=== PATIENT | male | born 1955 | race Caucasian/White ===

== ENCOUNTER 2017-12-17 14:21 | Inpatient (IN) | payer BC ==
[2017-12-17] MEDS ORDERED: SODIUM CHLORIDE 0.9% 1,000 ML IV STA ×2 (15:22)
[2017-12-17] MEDS ORDERED: ASPIRIN 325 MG TAB PO STA (15:23)
--- NOTE | 2017-12-17 15:41 | ED ---
General Adult HPI - General Chief complaint: Neuro Symptoms/Deficit Stated complaint: fall,slurred speech, Time Seen by Provider: 12/17/17 15:07 Source: patient, RN notes reviewed, old records reviewed Mode of arrival: ambulatory Limitations: no limitations - History of Present Illness Initial comments: 62-year-old male presenting complaint of slurred speech. Patient reports that he had his abscess starting on Saturday. He also states that he had some abnormal movements to his lower sided face of his lip. Patient states that seems to resolve. He states is continue to have some issues with his speech. Patient also states that he had some dyskinesias of his left hand. He states he had a hard time opening his block back. Patient reports that on Saturday he did have a slip and fall on his stairs. He states he hit his lower back. He denied any head or neck injury at that time. No loss consciousness. Patient states he has some minor lower back pain. - Related Data Home Medications Medication Instructions Recorded Confirmed Naproxen Sodium [Aleve] 220 mg PO DAILY PRN 12/17/17 12/17/17 Allergies Allergy/AdvReac Type Severity Reaction Status Date / Time No Known Allergies Allergy Unverified 12/17/17 15:23 Review of Systems ROS Statement: Those systems with pertinent positive or pertinent negative responses have been documented in the HPI. ROS Other: All systems not noted in ROS Statement are negative. Past Medical History Past Medical History: No Reported History History of Any Multi-Drug Resistant Organisms: None Reported Past Surgical History: No Surgical Hx Reported Additional Past Surgical History / Comment(s): oral Past Psychological History: Anxiety Smoking Status: Never smoker Past Alcohol Use History: None Reported Past Drug Use History: None Reported General Exam - General Exam Comments Initial Comments: Patient is a 62-year-old male. He is alert and oriented 3. He appears in no acute distress. Limitations: no limitations General appearance: alert, in no apparent distress Head exam: Present: atraumatic, normocephalic, normal inspection Eye exam: Present: normal appearance, PERRL, EOMI. Absent: scleral icterus, conjunctival injection, periorbital swelling ENT exam: Present: normal exam, mucous membranes moist Neck exam: Present: normal inspection. Absent: tenderness, meningismus, lymphadenopathy Respiratory exam: Present: normal lung sounds bilaterally. Absent: respiratory distress, wheezes, rales, rhonchi, stridor Cardiovascular Exam: Present: regular rate, normal rhythm, normal heart sounds. Absent: systolic murmur, diastolic murmur, rubs, gallop, clicks GI/Abdominal exam: Present: soft, normal bowel sounds. Absent: distended, tenderness, guarding, rebound, rigid Extremities exam: Present: normal inspection, full ROM, normal capillary refill. Absent: tenderness, pedal edema, joint swelling, calf tenderness Back exam: Present: normal inspection, other (Slight tenderness palpation over the right flank.) Neurological exam: Present: alert, oriented X3, CN II-XII intact Expanded Patient oriented to: Present: person, place, time Speech: Present: fluid speech (Patient has slight slurred speech per family.) Cranial nerves: EOM's Intact: Normal, Facial Sensation: Normal Cerebellar function: Finger to Nose: Normal Upper motor neuron: Gigi Neglect: Normal Sensory exam: Upper Extremity Light Touch: Normal, Lower Extremity Light Touch: Normal Motor strength exam: RUE: 5, LUE: 5, RLE: 5, LLE: 5 Eye Response: (4) open spontaneously Motor Response: (6) obeys commands Verbal Response: (5) oriented [place] Total: 15 Psychiatric exam: Present: normal affect Skin exam: Present: warm, dry, intact, normal color. Absent: rash Course Vital Signs 12/17/17 12/17/17 14:45 15:50 Temperature 98.8 F Pulse Rate 91 61 Respiratory 16 18 Rate Blood Pressure 165/84 140/72 O2 Sat by Pulse 98 96 Oximetry EKG Findings - EKG Comments: EKG Findings:: EKG shows normal sinus rhythm minimal voltage criteria for LVH. In for infarct age undetermined. Abnormal EKG noted. Ventricular rate of 70 bpm. Intervals 178 ms. Care instruction 96 ms. QT QTc is 396/427 ms. Medical Decision Making - Medical Decision Making 62-year-old male presented today with concern of back pain after fall, complains of slurred speech since Saturday. Patient has no focal findings on neuroexam. Did have a slightly slurred speech according to family. Difficult to appreciate on initial exam. No focal weakness the Patient reported a history of dyskinesia of his left hand earlier today. 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 Patient's EKG was negative for any acute changes. Troponin was negative. White blood cell count was 8.0. Hemoglobin 16.1. At this time Patient CT shows evidence of abnormal attenuation at the basal ganglia. There is generalized nonspecific white matter changes and most likely related to remote ischemia. Patient was given an aspirin. Also lab work does show evidence of a new onset of diabetes. Blood sugar was 250. - Lab Data Result diagrams: 12/17/17 15:05 12/17/17 15:05 Lab Results 12/17/17 12/17/17 12/17/17 Range/Units 15:05 15:05 15:05 WBC 8.0 (3.8-10.6) k/uL RBC 5.55 (4.30-5.90) m/uL Hgb 16.1 (13.0-17.5) gm/dL Hct 47.5 (39.0-53.0) % MCV 85.6 (80.0-100.0) fL MCH 29.0 (25.0-35.0) pg MCHC 33.9 (31.0-37.0) g/dL RDW 12.5 (11.5-15.5) % Plt Count 228 (150-450) k/uL Neutrophils % 66 % Lymphocytes % 26 % Monocytes % 5 % Eosinophils % 3 % Basophils % 1 % Neutrophils # 5.3 (1.3-7.7) k/uL Lymphocytes # 2.1 (1.0-4.8) k/uL Monocytes # 0.4 (0-1.0) k/uL Eosinophils # 0.2 (0-0.7) k/uL Basophils # 0.0 (0-0.2) k/uL PT (9.0-12.0) sec INR (<1.2) APTT (22.0-30.0) sec Sodium 138 (137-145) mmol/L Potassium 4.2 (3.5-5.1) mmol/L Chloride 105 (98-107) mmol/L Carbon Dioxide 23 (22-30) mmol/L Anion Gap 10 mmol/L BUN 20 (9-20) mg/dL Creatinine 0.66 (0.66-1.25) mg/dL Est GFR (CKD-EPI)AfAm >90 (>60 ml/min/1.73 sqM) Est GFR (CKD-EPI)NonAf >90 (>60 ml/min/1.73 sqM) Glucose 250 H (74-99) mg/dL POC Glucose (mg/dL) (75-99) mg/dL POC Glu Automatic Pilot Mechanic ID Calcium 9.4 (8.4-10.2) mg/dL Total Bilirubin 0.6 (0.2-1.3) mg/dL AST 22 (17-59) U/L ALT 34 (21-72) U/L Alkaline Phosphatase 78 (38-126) U/L Total Creatine Kinase 109 (55-170) U/L CK-MB (CK-2) 1.7 (0.0-2.4) ng/mL CK-MB (CK-2) Rel Index 1.6 Troponin I <0.012 (0.000-0.034) ng/mL Total Protein 7.4 (6.3-8.2) g/dL Albumin 4.1 (3.5-5.0) g/dL 12/17/17 12/17/17 Range/Units 15:05 16:03 WBC (3.8-10.6) k/uL RBC (4.30-5.90) m/uL Hgb (13.0-17.5) gm/dL Hct (39.0-53.0) % MCV (80.0-100.0) fL MCH (25.0-35.0) pg MCHC (31.0-37.0) g/dL RDW (11.5-15.5) % Plt Count (150-450) k/uL Neutrophils % % Lymphocytes % % Monocytes % % Eosinophils % % Basophils % % Neutrophils # (1.3-7.7) k/uL Lymphocytes # (1.0-4.8) k/uL Monocytes # (0-1.0) k/uL Eosinophils # (0-0.7) k/uL Basophils # (0-0.2) k/uL PT 10.4 (9.0-12.0) sec INR 1.1 (<1.2) APTT 23.1 (22.0-30.0) sec Sodium (137-145) mmol/L Potassium (3.5-5.1) mmol/L Chloride (98-107) mmol/L Carbon Dioxide (22-30) mmol/L Anion Gap mmol/L BUN (9-20) mg/dL Creatinine (0.66-1.25) mg/dL Est GFR (CKD-EPI)AfAm (>60 ml/min/1.73 sqM) Est GFR (CKD-EPI)NonAf (>60 ml/min/1.73 sqM) Glucose (74-99) mg/dL POC Glucose (mg/dL) 233 H (75-99) mg/dL POC Glu Automatic Pilot Mechanic Anitha Monterroso Calcium (8.4-10.2) mg/dL Total Bilirubin (0.2-1.3) mg/dL AST (17-59) U/L ALT (21-72) U/L Alkaline Phosphatase (38-126) U/L Total Creatine Kinase (55-170) U/L CK-MB (CK-2) (0.0-2.4) ng/mL CK-MB (CK-2) Rel Index Troponin I (0.000-0.034) ng/mL Total Protein (6.3-8.2) g/dL Albumin (3.5-5.0) g/dL - Radiology Data Radiology results: report reviewed No acute cardio pulmonary process noted. Degenerative disc disease noted. Arthropathy. Mild spinal curvature. CT was obtained for any acute hemorrhage or mass effect noted. There is degenerative and nonspecific white matter changes and abnormal attenuation in the basal ganglia. Most likely related to remote ischemia. There is concern for ischemia correlate with MRI if clinically warranted. Disposition Clinical Impression: TIA (transient ischemic attack), Diabetes mellitus, new onset, Fall, Mechanical low back pain Disposition: ADMITTED IP TO THIS HOSP Condition: Stable Is patient prescribed a controlled substance at d/c from ED?: No Referrals: Salvador Carpio DO [Primary Care Provider] - 1-2 days Time of Disposition: 17:01
[2017-12-17 15:52] LABS: Basophils % (A) 1 %; Eosinophils # (A) 0.2 k/uL (0-0.7); Eosinophils % (A) 3 %; HCT 47.5 % (39.0-53.0); HGB 16.1 gm/dL (13.0-17.5); Lymphocytes # (A) 2.1 k/uL (1.0-4.8); Lymphocytes % (A) 26 %; MCHC 33.9 g/dL (31.0-37.0); MCV 85.6 fL (80.0-100.0); Mean Platelet Volume 7.7; Monocytes # (A) 0.4 k/uL (0-1.0); Monocytes % (A) 5 %; Neutrophils # (A) 5.3 k/uL (1.3-7.7); Neutrophils % (A) 66 %; Platelet Count 228 k/uL (150-450); RBC 5.55 m/uL (4.30-5.90); RDW 12.5 % (11.5-15.5)
--- NOTE | 2017-12-17 15:52 | CT ---
EXAMINATION TYPE: CT brain wo con DATE OF EXAM: 12/17/2017 COMPARISON: None HISTORY: Left sided hand weakness CT DLP: 1108.4 mGycm Automated exposure control for dose reduction was used. FINDINGS: Mild to moderate generalized degenerative change with nonspecific white matter areas of low attenuati on. No mass effect or midline shift. No acute hemorrhage. Low attenuation within the basal ganglia bilaterally is nonspecific but most typical remote microvasc ular ischemia. Low-attenuation the ke appears artifactual. Calvarium intact. IMPRESSION: 1. No acute hemorrhage or mass effect. 2. Degenerative and nonspecific white matter changes and abnormal attenuation in the basal ganglia. F indings most likely in the basis of remote ischemia. If there is concern for acute ischemia correlate with MRI as clinically warranted.
[2017-12-17 16:01] LABS: INR 1.1 (<1.2); Partial Thromboplastin Time 23.1 sec (22.0-30.0); Prothrombin Time 10.4 sec (9.0-12.0)
[2017-12-17 16:02] LABS: ALT 34 U/L (21-72); AST 22 U/L (17-59); Albumin 4.1 g/dL (3.5-5.0); Alkaline Phosphatase 78 U/L (38-126); Anion Gap 10 mmol/L; Blood Urea Nitrogen 20 mg/dL (9-20); Calcium 9.4 mg/dL (8.4-10.2); Carbon Dioxide 23 mmol/L (22-30); Chloride 105 mmol/L (98-107); Glucose 250 mg/dL (74-99); Potassium 4.2 mmol/L (3.5-5.1); Sodium 138 mmol/L (137-145); Total Bilirubin 0.6 mg/dL (0.2-1.3); Total Protein 7.4 g/dL (6.3-8.2)
[2017-12-17 16:06] LABS: Glucose,Whole Blood 233 mg/dL (75-99)
--- NOTE | 2017-12-17 16:09 | XR ---
Lumbar spine HISTORY: Trauma and pain 3 views of the lumbar spine There is mild spinal curvature. Multilevel spondylosis is present. Loss of disc height present at the intervertebral levels shows associated vacuum phenomenon. Sclerosis present in the posterior element s. Lumbar vertebral bodies show preserved height. Bone mineralization is normal. Calcification presen t in the distribution of the aortoiliac system. IMPRESSION: Degenerative disc disease, facet arthropathy. Mild spinal curvature.
--- NOTE | 2017-12-17 16:10 | XR ---
EXAMINATION TYPE: XR chest 2V DATE OF EXAM: 12/17/2017 COMPARISON: NONE HISTORY: Trauma and pain, altered mental status TECHNIQUE: Frontal and lateral views of the chest are obtained. FINDINGS: There is no focal air space opacity, pleural effusion, or pneumothorax seen. The cardiac silhouette size is within normal limits. There are overlying cardiac leads. Patient is rotated. Incre ased AP diameter of the chest is noted. Bandlike area of increased attenuation in the left upper lobe likely represents scar or atelectasis. The osseous structures are intact. IMPRESSION: No acute cardiopulmonary process.
[2017-12-17 16:20] LABS: Creatine Kinase 109 U/L (55-170)
[2017-12-17 16:32] LABS: Creatine Kinase MB 1.7 ng/mL (0.0-2.4)
[2017-12-17 16:33] LABS: Troponin I <0.012 ng/mL (0.000-0.034)
[2017-12-17 20:50] LABS: Glucose,Whole Blood 156 mg/dL (75-99)
--- NOTE | 2017-12-17 21:26 | US ---
EXAMINATION TYPE: US carotid duplex BILAT DATE OF EXAM: 12/17/2017 COMPARISON: NONE CLINICAL HISTORY: Stenosis. Slurred speech. EXAM MEASUREMENTS: RIGHT: Peak Systolic Velocity (PSV) cm/sec ----- Right CCA: 56.6 ----- Right ICA: 84.2 ----- Right ECA: 76.9 ICA/CCA ratio: 1.5 RIGHT: End Diastole cm/sec ----- Right CCA: 14.4 ----- Right ICA: 23.1 ----- Right ECA: 5.7 LEFT: Peak Systolic Velocity (PSV) cm/sec ----- Left CCA: 69.6 ----- Left ICA: 69.6 ----- Left ECA: 72.5 ICA/CCA ratio: 1.0 LEFT: End Diastole cm/sec ----- Left CCA: 14.4 ----- Left ICA: 23.1 ----- Left ECA: 5.7 VERTEBRALS (direction of flow): Right Vertebral: Antegrade Left Vertebral: Antegrade Rhythm: Normal IMPRESSION: NO SIGNIFICANT STENOSIS SEEN.
[2017-12-17] MEDS ORDERED: ACETAMINOPHEN TAB 500 MG TAB PO PRN (21:53)
[2017-12-17] MEDS ORDERED: ALPRAZolam 0.25 MG TAB PO PRN (21:53)
--- NOTE | 2017-12-17 22:36 | HP ---
HISTORY AND PHYSICAL CHIEF COMPLAINTS: Slurring of speech and weakness. HISTORY OF PRESENT ILLNESS: This 62-year-old gentleman with a past medical history of bowel resection and extraction of wisdom teeth, being followed by Dr. Carpio in the outpatient setting, was complaining of dysarthria for the last couple of days. The patient also noted some weakness which is increasing since last yesterday. The patient came to [facility] and was admitted for further evaluation and treatment. There is no history of any fever, rigor or chills. No history of headache, loss of consciousness, seizures. PAST MEDICAL HISTORY: 1. History of bowel resection. 2. History of wisdom tooth extraction. MEDICATIONS: Naprosyn p.r.n. ALLERGIES: NONE. FAMILY HISTORY: History of diabetes mellitus and pulmonary fibrosis in the family. SOCIAL HISTORY: No history of smoking. No history of alcohol intake. REVIEW OF SYSTEMS: ENT: As mentioned earlier. CARDIOVASCULAR SYSTEM: No angina, palpitations. RESPIRATORY SYSTEM: No cough, hemoptysis. GI: No nausea, vomiting. : No dysuria or retention. NERVOUS SYSTEM: As mentioned earlier. ALLERGY/IMMUNOLOGY: No asthma, hayfever. MUSCULOSKELETAL: As mentioned earlier. HEMATOLOGY/ONCOLOGY: No history of anemia. ENDOCRINE: As mentioned earlier. CONSTITUTIONAL: As mentioned earlier. DERMATOLOGY: Negative. RHEUMATOLOGY: Negative. PSYCHIATRY: As mentioned earlier. PHYSICAL EXAMINATION: Patient is alert and oriented x3. Pulse 56, blood pressure 173/82, respiration 17, temperature 97.6, pulse ox 97% on room air. HEENT: Conjunctivae normal. Oral mucosa moist. NECK: No jugular venous distention. No carotid bruit. No lymph node enlargement. CARDIOVASCULAR SYSTEM: S1, S2 muffled. No S3. No S4. RESPIRATORY SYSTEM: Breath sounds diminished at the bases. No rhonchi. No crackles. ABDOMEN: Soft, non-tender. No mass palpable. LEGS: No edema. No swelling. NERVOUS SYSTEM: Higher functions as mentioned earlier. Moves all 4 limbs. Mild dysarthria present. Otherwise,minimal weakness on the left side present. LYMPHATICS: No lymph node palpable in neck, axillae or groin. SKIN: No ulcer, rash, bleeding. JOINTS: No active deforming arthropathy. LABS: CBC within normal limits. Glucose 250, 233. ASSESSMENT: 1. Acute transient ischemic attack involving the right hemisphere, possibly. 2. Diabetes mellitus, type 2, new onset, controlled, with hyperglycemia. 3. History of bowel resection. 4. History of wisdom tooth extraction. 5. Hypertension. 6. Lumbar degenerative joint disease. RECOMMENDATIONS AND DISCUSSION: In this 62-year-old gentleman who presented with multiple complex medical issues, we will monitor the patient closely, continue the current medications, continue symptomatic treatment. I recommend antiplatelet agents and complete neurovascular workup, neurology evaluation. Accu-Cheks before meals and at bedtime. Hemoglobin A1c. Prognosis guarded because of multiple complex medical issues. Further recommendations to follow. A carotid Doppler was also done which showed no significant stenosis. Lumbar x-ray was also done which showed DJD. The chest x-ray showed no acute cardiopulmonary process. EKG was reviewed. Prognosis guarded. Further recommendations to follow. See orders for further details. MMODL / IJN: [id number] /
[2017-12-17 23:18] LABS: Appearance,Urine Clear (Clear); Bilirubin,Urine Negative (Negative); Blood,Urine Negative (Negative); Color,Urine Yellow; Glucose,Urine (UA) 4+ (Negative); Ketones,Urine Negative (Negative); Leukocyte Esterase,Urine Negative (Negative); Nitrite,Urine Negative (Negative); PH, Urine 5.5 (5.0-8.0); Protein,Urine Trace (Negative); Specific Gravity,Urine 1.024 (1.001-1.035); Urobilinogen,Urine <2.0 mg/dL (<2.0)
[2017-12-17 23:26] LABS: Amphetamine Screen,Urine Not Detected (NotDetected); Barbiturate Screen,Urine Not Detected (NotDetected); Benzodiazepines Screen,Urine Not Detected (NotDetected); Cocaine Screen,Urine Not Detected (NotDetected); Methadone Screen, Urine Not Detected (NotDetected); Opiate Screen,Urine Not Detected (NotDetected); Oxycodone Screen, Urine Not Detected (NotDetected); Phencyclidine Screen,Urine Not Detected (NotDetected); Tricyclic Antidepressant,Urine Not Detected (NotDetected); Urn Cannabinoid Scrn Not Detected (NotDetected)
[2017-12-18 02:43] LABS: Basophils # (A) 0.1 k/uL (0-0.2); Basophils % (A) 1 %; Eosinophils # (A) 0.3 k/uL (0-0.7); Eosinophils % (A) 3 %; HCT 41.5 % (39.0-53.0); HGB 14.2 gm/dL (13.0-17.5); Lymphocytes # (A) 2.4 k/uL (1.0-4.8); Lymphocytes % (A) 30 %; MCH 29.1 pg (25.0-35.0); MCHC 34.2 g/dL (31.0-37.0); Mean Platelet Volume 7.2; Monocytes # (A) 0.4 k/uL (0-1.0); Monocytes % (A) 5 %; Neutrophils # (A) 4.7 k/uL (1.3-7.7); Neutrophils % (A) 59 %; Platelet Count 180 k/uL (150-450); RBC 4.88 m/uL (4.30-5.90); RDW 12.5 % (11.5-15.5); WBC 8.1 k/uL (3.8-10.6)
[2017-12-18 02:58] LABS: Anion Gap 6 mmol/L; Blood Urea Nitrogen 19 mg/dL (9-20); Calcium 8.6 mg/dL (8.4-10.2); Carbon Dioxide 23 mmol/L (22-30); Chloride 106 mmol/L (98-107); Cholesterol 153 mg/dL (<200); Glucose 199 mg/dL (74-99); HDL Cholesterol 49 mg/dL (40-60); LDL Cholesterol,Calculated 75 mg/dL (0-99); Potassium 3.8 mmol/L (3.5-5.1); Sodium 135 mmol/L (137-145); Triglycerides 144 mg/dL (<150)
[2017-12-18 06:02] LABS: Glucose,Whole Blood 198 mg/dL (75-99)
[2017-12-18] MEDS: PANTOPRAZOLE 40 MG TABLET PO SCH (06:22)
[2017-12-18] MEDS: INSULIN ASPART 100 UNIT/ML 1 ML 10 ML VIAL SQ SCH ×4 (06:22→22:23)
[2017-12-18] MEDS: SODIUM CHLORIDE 0.9% 1,000 ML IV SCH ×3 (06:33→22:25)
[2017-12-18] MEDS: ASPIRIN 325 MG TAB PO SCH (08:03)
[2017-12-18] MEDS: ATORVASTATIN 10 MG TAB PO SCH (08:03)
[2017-12-18] MEDS: HEPARIN SODIUM,PORCINE 5,000 UNIT/ML 1 ML VIAL SQ SCH ×2 (08:03→20:25)
[2017-12-18 09:03] LABS: Glucose,Whole Blood 171 mg/dL (75-99)
[2017-12-18 11:52] LABS: Glucose,Whole Blood 214 mg/dL (75-99)
[2017-12-18] MEDS ORDERED: LORazepam 2 MG/ML INJ IV STA (12:17)
[2017-12-18 14:23] LABS: Hemoglobin A1C 11.1 % (4.0-6.0)
--- NOTE | 2017-12-18 14:34 | PN ---
PROGRESS NOTE DATE OF SERVICE: 12/18/2017 This is a 62-year-old gentleman who was admitted with acute TIA involving the right middle hemisphere, also noted to have diabetes mellitus type 2. Neurology is following the patient. Neurovascular workup is underway. The carotid Doppler showed no significant stenosis. Hemoglobin A1c is pending. Sugars have been 198, 171, and 214. No chest pain. No palpitations. No fever. PHYSICAL EXAM: Patient is alert, oriented x3, pulse is 65, blood pressure 140/70, respiration 18, temperature 98.1, pulse ox 99% on room air. HEENT: Conjunctivae normal. NECK: No JVD. CARDIOVASCULAR: S1, S2, muffled. RESPIRATORY: Breath sounds diminished at the bases, no rhonchi, no crackles. ABDOMEN: Soft, nontender. NERVOUS SYSTEM: Minimal dysarthria. Minimal weakness on the left side. No gait dysfunction. LYMPHATICS: No lymph node enlargement in the neck or axillae. LABS: Accu-Cheks noted, sodium 135. ASSESSMENT: 1. Acute transient ischemic attack involving the right hemisphere, possibly. 2. Diabetes mellitus type 2 new onset, uncontrolled with hyperglycemia. 3. History of bowel resection. 4. History of recent tooth extraction. 5. Hypertension. 6. Lumbar degenerative joint disease. RECOMMENDATION: Recommend to continue with the current medications, monitor symptomatic treatment. At this time will initiate Glucophage and continue to monitor. See orders for further details. Further recommendations to follow. I would also recommend MRI, Neurology evaluation. MMODL / IJN: [id number] /
[2017-12-18 15:01] VITALS: BMI 33.9
[2017-12-18] MEDS: metFORMIN 500 MG TAB PO SCH ×2 (15:42→17:13)
[2017-12-18 16:59] LABS: Glucose,Whole Blood 172 mg/dL (75-99)
[2017-12-18 20:58] LABS: Glucose,Whole Blood 171 mg/dL (75-99)
--- NOTE | 2017-12-18 23:45 | P.CNNES ---
History of Present Illness Consult date: 12/18/17 Reason for Consult: Patient admitted with slurred speech and left hand weakness. History of Present Illness: This patient is a 62-year-old right hand white male who apparently was in his usual state of health until yesterday. Patient apparently was at home as usual and was working in his garage when he noticed difficulty with the use of his left arm. Apparently he was experiencing fine motor skill deficits in that he could not use his left hand as he could to his right. He came into the house and his noted that he was having difficulty with his speech. As time went on his speech became more and more slurred. 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 His had noted the changes and she was quite concerned. Apparently he has not been seen by his primary care physician Dr. Carpio in over 2 years. He states he never goes to the physicians unless he is very sick. The patient was brought into the emergency room at [facility] yesterday for further evaluation. He was seen in the ER by Dr. Castillo. He was sent for a computed tomography scan of the brain given his symptoms of weakness and slurred speech yesterday. CAT scan of the brain yesterday revealed no acute hemorrhage or mass effect. Degenerative and nonspecific white matter changes and abnormal attenuation was noted in the basal ganglia. These findings suggesting remote ischemia. No evidence of hemorrhage or mass effect was noted. Patient also underwent carotid Doppler ultrasound yesterday which revealed no significant stenosis. Patient states he does not take aspirin on a regular basis at home. As noted he has not been seen by his primary care physician in over 2 years. In the emergency room his blood sugar was noted to be very elevated at 250. He was diagnosed with new onset diabetes mellitus and was started on diabetic medications. Patient denies any previous history of TIA or stroke. He retired from [employer] in 2006 but has remained very active at home according to his . The patient was admitted to the hospital and neurology is now been consulted for further evaluation and recommendations. Review of Systems Constitutional: Denies chills, Denies fever Eyes: denies blurred vision, denies pain Ears, nose, mouth and throat: Denies as per HPI ( ultimately still), Denies headache, Denies sore throat Cardiovascular: Denies chest pain, Denies shortness of breath Respiratory: Denies cough Gastrointestinal: Denies abdominal pain, Denies diarrhea, Denies nausea, Denies vomiting Musculoskeletal: Denies myalgias Integumentary: Denies pruritus, Denies rash Neurological: Reports balance difficulties, Reports change in speech, Reports confusion, Reports double vision, Reports lack of coordination, Reports motor disturbance, Reports paresthesias, Reports tingling, Denies numbness, Denies weakness Psychiatric: Denies anxiety, Denies depression Endocrine: Denies fatigue, Denies weight change Past Medical History Past Medical History: No Reported History Additional Past Medical History / Comment(s): rt side dominant History of Any Multi-Drug Resistant Organisms: None Reported Past Surgical History: Bowel Resection Additional Past Surgical History / Comment(s): wisdome teeth extracted andgumm sx Past Anesthesia/Blood Transfusion Reactions: No Reported Reaction Smoking Status: Never smoker - Past Family History Father Family Medical History: Diabetes Mellitus Additional Family Medical History / Comment(s): , pulmonary fibrosis Mother Family Medical History: Diabetes Mellitus Medications and Allergies Home Medications Medication Instructions Recorded Confirmed Type Naproxen Sodium [Aleve] 220 mg PO DAILY PRN 12/17/17 12/17/17 History Allergies Allergy/AdvReac Type Severity Reaction Status Date / Time No Known Allergies Allergy Unverified 12/17/17 15:23 Physical Examination - Vital Signs Vital Signs: Vital Signs Temp Pulse Pulse Resp BP BP Pulse Ox 12/18/17 15:20 98.3 F 61 18 140/78 95 12/18/17 12:05 98.1 F 65 18 144/73 99 12/18/17 07:50 97.2 F L 58 L 18 140/66 96 12/18/17 04:00 62 16 132/86 96 12/18/17 00:00 68 18 116/65 96 12/17/17 22:12 98.0 F 58 L 18 162/82 98 12/17/17 20:52 56 L 17 173/82 97 Intake and Output 12/18/17 12/18/17 12/18/17 06:59 14:59 22:59 Intake Total 800 222 Output Total 1040 800 Balance -240 -578 Intake: Intake, IV Titration 800 Amount Sodium Chloride 0.9% 1, 800 000 ml @ 100 mls/hr IV . Q10H [facility] Rx#:[id number] Oral 222 Output: Urine 1040 800 Other: # Voids 4 Weight 107.2 kg 107.2 kg - Constitutional General appearance: average body habitus, cooperative - EENT EENT: PERRL, mucous membranes moist - Respiratory Respiratory: lungs clear, normal breath sounds - Cardiovascular Cardiovascular: regular rate, normal S1, normal S2 Extremities: no peripheral edema bilaterally - Gastrointestinal Gastrointestinal: normoactive bowel sounds - Integumentary Integumentary: normal - Neurologic Cranial nerve examination: PERRL, EOMI, VFF, V1/V2/V3 grossly intact, face symmetric, tongue midline, intact gag reflex, intact corneal reflex, normal palatal elevation Speech examination: intact Sensorimotor examination: intact Motor examination - right side: 4/5: biceps, triceps, wrist flexion, wrist extension, final assembly and packing supervisor, hip flexors, knee extensors, dorsiflexion, toe extension (EHL) , plantarflexion Motor examination - left side: 4/5: biceps, triceps, wrist flexion, wrist extension, final assembly and packing supervisor, hip flexors, knee extensors, dorsiflexion, toe extension (EHL) , plantarflexion Detailed sensory examination: intact Reflex and gait examination: intact Reflexes: 1+: ankle, bicep, knee, tricep Cerebellar examination: dysmetria, dysdiadochokinesia - Musculoskeletal Musculoskeletal: no pain - Psychiatric Psychiatric: mood/affect appropriate, cooperative Results - Laboratory Findings CBC and BMP: 12/18/17 02:28 12/18/17 02:28 Abnormal Lab Findings: Abnormal Labs 12/17/17 12/17/17 12/17/17 15:05 15:05 16:03 Sodium Creatinine Glucose 250 H POC Glucose (mg/dL) 233 H Hemoglobin A1c 11.1 H Urine Protein Urine Glucose (UA) 12/17/17 12/17/17 12/18/17 20:49 23:00 02:28 Sodium 135 L Creatinine 0.60 L Glucose 199 H POC Glucose (mg/dL) 156 H Hemoglobin A1c Urine Protein Trace H Urine Glucose (UA) 4+ H 12/18/17 12/18/17 12/18/17 05:59 08:43 11:49 Sodium Creatinine Glucose POC Glucose (mg/dL) 198 H 171 H 214 H Hemoglobin A1c Urine Protein Urine Glucose (UA) 12/18/17 16:53 Sodium Creatinine Glucose POC Glucose (mg/dL) 172 H Hemoglobin A1c Urine Protein Urine Glucose (UA) Assessment and Plan (1) Acute ischemic vertebrobasilar artery cerebellar stroke Current Visit: Yes Status: Acute Code(s): I63.29 - CEREBRAL INFRC DUE TO UNSP OCCLS OR STENOSIS OF PRECERB ART SNOMED Code(s): 778731446 (2) Chronic low back pain Current Visit: Yes Status: Acute Code(s): M54.5 - LOW BACK PAIN; G89.29 - OTHER CHRONIC PAIN SNOMED Code(s): 914918129 (3) Diabetes mellitus, new onset Current Visit: Yes Status: Acute Code(s): E11.9 - TYPE 2 DIABETES MELLITUS WITHOUT COMPLICATIONS SNOMED Code(s): 910920833 (4) Fall Current Visit: Yes Status: Acute Code(s): W19.XXXA - UNSPECIFIED FALL, INITIAL ENCOUNTER SNOMED Code(s): 2103238 Plan: This patient is a 62-year-old male who was admitted through the emergency room yesterday with symptoms of slurred speech and weakness in his left arm. Symptoms came on suddenly and he was transported to the emergency room yesterday and was seen in the ER by Dr. Castillo. He was sent for a computed tomography scan of the brain which failed to reveal any evidence of acute stroke. He was subtotally admitted to Hospital. His neurological examination today reveals him to have significant left-sided hemiparesis as well as left- sided dysmetria on finger-nose testing. He has dysmetria in the lower extremities as well with [id number] testing on his left side. These findings are all suggesting an acute cerebellar stroke. We have recommended the patient undergo an MRI of the brain. Carotid Doppler ultrasound failed to reveal any significant carotid artery stenosis. He will require a complete stroke evaluation. We recommend he be placed on aspirin daily for secondary stroke prevention. Would recommend physical therapy consultation for the patient as well. We have discussed his findings in detail with the patient and his who is at bedside. All of their questions were answered. They are aware of his current neurological findings and status. His overall prognosis at this time remains very guarded. We will continue close neurological follow-up for this patient during this admission. Time with Patient: Greater than 30
[2017-12-19 02:06] LABS: Cholesterol 150 mg/dL (<200); HDL Cholesterol 46 mg/dL (40-60); LDL Cholesterol,Calculated 76 mg/dL (0-99); Triglycerides 139 mg/dL (<150)
[2017-12-19] MEDS: metFORMIN 500 MG TAB PO SCH ×2 (06:10→18:30)
[2017-12-19] MEDS: PANTOPRAZOLE 40 MG TABLET PO SCH (06:11)
[2017-12-19 06:13] LABS: Glucose,Whole Blood 148 mg/dL (75-99)
[2017-12-19] MEDS: INSULIN ASPART 100 UNIT/ML 1 ML 10 ML VIAL SQ SCH ×4 (07:03→21:34)
[2017-12-19] MEDS: SODIUM CHLORIDE 0.9% 1,000 ML IV SCH ×2 (07:42→12:54)
[2017-12-19] MEDS: HEPARIN SODIUM,PORCINE 5,000 UNIT/ML 1 ML VIAL SQ SCH ×2 (08:41→21:34)
[2017-12-19] MEDS: ATORVASTATIN 10 MG TAB PO SCH (08:41)
[2017-12-19] MEDS: ASPIRIN 325 MG TAB PO SCH (08:41)
[2017-12-19] MEDS ORDERED: LORazepam 2 MG/ML INJ IV STA (09:46)
--- NOTE | 2017-12-19 11:27 | MR ---
MR brain without contrast HISTORY: Left-sided weakness, TIA Multiplanar multisequence imaging through the brain There is restricted diffusion within the region of the putamen on the right. There is associated hype rintensity and inversion recovery T2-weighted sequences, hypointensity on T1-weighted sequences. Ther e is no mass effect. Scattered and confluent hyperintensities on T2 and inversion recovery sequences are noted within the periventricular, subcortical, deep white matter. Cortical atrophy is present. No evident hemorrhage or hydrocephalus. The orbits show symmetric appearance. There are normal vascular flow voids. Cerebellopontine angles, corpus callosum, pituitary, cervical medullary junction are wit hin normal limits. IMPRESSION: Subacute infarct region of the right putamen. There is also evidence of chronic small ves guzman ischemia, age related atrophy.
[2017-12-19 12:00] LABS: Glucose,Whole Blood 189 mg/dL (75-99)
--- NOTE | 2017-12-19 14:13 | P.CRDCN ---
History of Present Illness History of present illness: This is a pleasant 62-year-old male with no significant past medical history. He presented to the hospital with symptoms of slurred speech, left hand numbness, dizziness and increased fatigue. MRI of the brain performed indicates subacute infarct of right putamen, evidence of chronic small vessel ischemia and age related atrophy. We have been asked to do a CARROLL. Echocardiogram obtained is pending and will be reviewed. Bilateral carotid Dopplers obtained and reveal no significant stenosis. EKG reveals sinus mechanism with T-wave inversions inferiorly. Telemetry tracings indicate sinus mechanism with no acute arrhythmia noted. He denies history of coronary artery disease, hypertension, dyslipidemia or diabetes mellitus. He states he has never been told he has atrial fibrillation and is never seen a crown presser other than in the hospital for a stress test. He denies symptoms of chest pain , palpitations, nausea, vomiting, diaphoresis, shortness of breath or dizziness. He states over the previous year so one or 2 times he has felt a sensation of fluttering in his chest that lasted approximately one to 2 minutes and ultimately subsided on its own. Laboratory data reviewed, hemoglobin 14.2, platelets 180, sodium 135, potassium 3.8, creatinine 0.6, cardiac enzymes negative 3, LDL 76, HDL 46. Prior to arrival he took no daily medications. Review of Systems At the time of my exam: CONSTITUTIONAL: Denies fever. Denies chills. Complains of slurred speech. EYES: Denies blurred vision. Denies vision changes. Denies eye pain. EARS, NOSE, MOUTH & THROAT: Denies headache. Denies sore throat. Denies ear pain. CARDIOVASCULAR: Denies chest pain. Denies shortness of breath. Denies orthopnea. Denies PND. Denies palpitations. RESPIRATORY: Denies cough. GASTROINTESTINAL: Denies abdominal pain. Denies diarrhea. Denies constipation. Denies nausea. Denies vomiting. MUSCULOSKELETAL: Denies myalgias. INTEGUMENTARY: Denies pruitis. Denies rash. NEUROLOGIC: Complains of numbness to left hand. Denies tingling. Denies weakness. PSYCHIATRIC: Denies anxiety. Denies depression. ENDOCRINE: Denies fatigue. Denies weight change. Denies polydipsia. Denies polyurina. GENITOURINARY: Denies burning, hematuria or urgency with micturation. HEMATOLOGIC: Denies history of anemia. Denies bleeding. Past Medical History Past Medical History: No Reported History Additional Past Medical History / Comment(s): rt side dominant History of Any Multi-Drug Resistant Organisms: None Reported Past Surgical History: Bowel Resection Additional Past Surgical History / Comment(s): wisdome teeth extracted andgumm sx Past Anesthesia/Blood Transfusion Reactions: No Reported Reaction Smoking Status: Never smoker - Past Family History Father Family Medical History: Diabetes Mellitus Additional Family Medical History / Comment(s): , pulmonary fibrosis Mother Family Medical History: Diabetes Mellitus Medications and Allergies Home Medications Medication Instructions Recorded Confirmed Type Naproxen Sodium [Aleve] 220 mg PO DAILY PRN 12/17/17 12/17/17 History Allergies Allergy/AdvReac Type Severity Reaction Status Date / Time No Known Allergies Allergy Unverified 12/17/17 15:23 Physical Exam Vitals: Vital Signs Temp Pulse Resp BP Pulse Ox 12/19/17 08:00 96.9 F L 59 L 16 149/65 95 12/19/17 04:00 63 16 150/81 98 12/18/17 23:30 64 16 152/69 96 12/18/17 20:00 97.7 F 60 16 153/77 99 12/18/17 15:20 98.3 F 61 18 140/78 95 Intake and Output 12/18/17 12/19/17 12/19/17 22:59 06:59 14:59 Intake Total 480 Balance 480 Intake: Intake, IV Titration 480 Amount Sodium Chloride 0.9% 1, 480 000 ml @ 60 mls/hr IV . [id number] [facility] Rx#:[id number] Other: # Voids 1 2 Weight 105 kg Blood pressure 149/65 heart rate 59 afebrile maintaining oxygen saturation on room air GENERAL: This is a 62-year-old male in no apparent distress at the time of my examination. Mild slightly slurred speech. HEENT: Head is atraumatic, normocephalic. Pupils are equal, round. Sclerae anicteric. Conjunctivae are clear. Mucous membranes of the mouth are moist. Neck is supple. There is no jugular venous distention. No carotid bruit is heard. LUNGS: Clear to auscultation no wheezes, rales or rhonchi. No chest wall tenderness is noted on palpation or with deep breathing. HEART: Regular rate and rhythm without murmurs, rubs or gallops. S1 and S2 heard. ABDOMEN: Soft, nontender. Bowel sounds are heard. No organomegaly noted. EXTREMITIES: No evidence of peripheral edema and no calf tenderness noted. VASCULAR: Radial and dorsalis pedis pulses palpated, no evidence of clubbing. NEUROLOGIC: Patient is awake, alert and oriented x3. Results 12/18/17 02:28 12/18/17 02:28 Lipids 12/18/17 Range/Units 02:28 Triglycerides 139 (<150) mg/dL Cholesterol 150 (<200) mg/dL HDL Cholesterol 46 (40-60) mg/dL Current Medications Generic Name Dose Route Start Last Admin Trade Name Freq PRN Reason Stop Dose Admin Acetaminophen 500 mg 12/17/17 21:53 Tylenol Tab PO Q6HR PRN Fever and/ or Pain Alprazolam 0.25 mg 12/17/17 21:53 Xanax PO TID PRN Anxiety Aspirin 325 mg 12/18/17 09:00 12/19/17 08:41 Aspirin PO 325 mg DAILY COLTEN Administration Atorvastatin Calcium 10 mg 12/18/17 09:00 12/19/17 08:41 Lipitor PO 10 mg DAILY COLTEN Administration Heparin Sodium (Porcine) 5,000 unit 12/18/17 09:00 12/19/17 08:41 Heparin SQ 5,000 unit Q12HR COLTEN Administration Sodium Chloride 1,000 mls @ 60 mls/hr 12/17/17 17:15 12/19/17 12:54 Saline 0.9% IV 60 mls/hr .[id number] COLTEN Administration Insulin Aspart 0 unit 12/18/17 07:30 12/19/17 12:53 Novolog SQ 3 unit ACHS COLTEN Administration Protocol Metformin HCl 500 mg 12/18/17 13:53 12/19/17 06:10 Glucophage PO 500 mg BID-W/MEALS COLTEN Administration Pantoprazole Sodium 40 mg 12/18/17 07:30 12/19/17 06:11 Protonix PO 40 mg [id number] COLTEN Administration Intake and Output 12/18/17 12/19/17 12/19/17 22:59 06:59 14:59 Intake Total 480 Balance 480 Intake: Intake, IV Titration 480 Amount Sodium Chloride 0.9% 1, 480 000 ml @ 60 mls/hr IV . [id number] [facility] Rx#:[id number] Other: # Voids 1 2 Weight 105 kg 12/18/17 02:28 12/18/17 02:28 Assessment and Plan Assessment: ASSESSMENT Acute ischemic vertebrobasilar artery cerebellar stroke Diabetes mellitus PLAN CARROLL has been requested and will be performed tomorrow. Procedure has been explained in detail to the patient and his was at the bedside. Questions have been answered appropriately and they're agreeable to move forward with the above stated procedure. This has been reported orders have been placed. He will be nothing by mouth after midnight tonight. Nurse Practitioner note has been reviewed, I agree with a documented findings and plan of care. Patient was seen and examined.
--- NOTE | 2017-12-19 16:59 | PN ---
PROGRESS NOTE DATE OF SERVICE: 12/19/2017 This 62-year-old gentleman who was admitted with acute stroke in the right hemisphere had MRI of the brain which showed evidence of subacute infarct in the region of the right putamen. There is also evidence of chronic small-vessel ischemia. No chest pain. No palpitations. No fever. Neurology is following the patient closely. On exam, alert and oriented x3. The pulse is 59, blood pressure 114/64, respiration 16, temperature 96.9, pulse ox 94% on room air. HEENT: Conjunctivae normal. Oral mucosa moist. NECK: No jugular venous distention. No carotid bruit. No lymph node enlargement. CARDIOVASCULAR SYSTEM: S1, S2 muffled. RESPIRATORY SYSTEM: Breath sounds diminished at the bases. No rhonchi. No crackles. ABDOMEN: Soft, non-tender. LEGS: No edema. No swelling. NERVOUS SYSTEM: Minimal weakness in the left upper limb. Sodium 135, glucose 189. Lipid panel is normal. Drug screen is negative, ASSESSMENT: 1. Acute stroke of the right putamen causing weakness of the left side of the body. 2. Diabetes mellitus, type 2, new onset, uncontrolled with hyperglycemia. 3. History of bowel resection. 4. History of recent tooth extraction. 5. Hypertension. 6. History of lumbar degenerative joint disease. RECOMMENDATIONS AND DISCUSSION: I recommend to continue current medication, continue with the monitoring, symptomatic treatment. Otherwise, at this time I would monitor the patient closely. The blood sugar is slightly elevated. Hemoglobin A1c is 11. We will continue to monitor. Guarded prognosis. Further recommendations to follow. Will increase ambulation. PT/OT evaluation and possible CARROLL by Cardiology to rule out intracardiac sources or right-to- left shunts. Prognosis guarded. Further recommendations to follow. MMODL / IJN: [id number] /
[2017-12-19 17:20] LABS: Glucose,Whole Blood 159 mg/dL (75-99)
[2017-12-19 20:06] LABS: Glucose,Whole Blood 141 mg/dL (75-99)
[2017-12-20 07:05] LABS: Glucose,Whole Blood 152 mg/dL (75-99)
[2017-12-20] MEDS: PANTOPRAZOLE 40 MG TABLET PO SCH (07:43)
[2017-12-20] MEDS: metFORMIN 500 MG TAB PO SCH ×2 (07:43→18:06)
[2017-12-20] MEDS: INSULIN ASPART 100 UNIT/ML 1 ML 10 ML VIAL SQ SCH ×3 (07:45→18:06)
[2017-12-20] MEDS: ATORVASTATIN 10 MG TAB PO SCH ×2 (09:07→09:11)
[2017-12-20] MEDS: ASPIRIN 325 MG TAB PO SCH ×2 (09:07→09:10)
[2017-12-20] MEDS: HEPARIN SODIUM,PORCINE 5,000 UNIT/ML 1 ML VIAL SQ SCH (09:07)
[2017-12-20 11:10] LABS: Glucose,Whole Blood 141 mg/dL (75-99)
[2017-12-20] MEDS ORDERED: fentaNYL (PF) 50 MCG/ML 2 ML AMP ONE (12:38)
[2017-12-20] MEDS ORDERED: MIDAZOLAM 2 MG/2 ML VIAL ONE (12:38)
[2017-12-20] MEDS: BENZOCAINE SPRAY 1 CAN MUCOUS MEM ONE ×2 (12:54→12:56)
[2017-12-20] MEDS ORDERED: IV FLUID CONTINUATION 1,000 ML IV ONE (12:56)
[2017-12-20] MEDS ORDERED: fentaNYL (PF) 50 MCG/ML 2 ML AMP IVP ONE (12:57)
[2017-12-20] MEDS: MIDAZOLAM 2 MG/2 ML VIAL IVP ONE ×2 (12:57→12:59)
[2017-12-20] MEDS ORDERED: MIDAZOLAM 2 MG/2 ML VIAL IVP ONE (13:02)
--- NOTE | 2017-12-20 13:27 | P.TEE ---
Indications for Procedure(s): TIA Date of Procedure: 12/20/17 Preoperative Diagnosis: TIA Postoperative Diagnosis: No Cardec source of emboli identified Procedure(s) Performed: CARROLL Description of Procedure(s): INDICATION: To identify any Cardec source of emboli. Patient had TIA CONSENT: Verbal consent was obtained from the patient PROCEDURE: Patient was brought to the lab in a fasting state. Patient was prepped and draped in the usual fashion. The throat was sprayed with Cetacaine. A lubricated Omni probe was introduced in the oropharynx and was advanced into the esophagus. Multiple views were obtained. Patient tolerated the procedure well FINDINGS:. The aortic valve is tricuspid and function normally. Aortic root appeared to be normal. The mitral valve showed mild regurgitation. Tricuspid valve appeared to be normal. Left ankle size and function appear to be normal. Interatrial septum is intact without any spontaneous shunt. Contrast saline bubble injection was performed. No crossing of the bubbles noted. Left atrial appendage is free of any clot IMPRESSION: #1. No PFO #2. No evidence of clot in left atrial appendage. #3. No plaque in the aorta #4. Normal valvular function. Trace to mild mitral regurgitation. #5. Normal LV function PLAN:. Maximum medical therapy. Look for other causes of TIA.
[2017-12-20] MEDS ORDERED: SODIUM CHLORIDE 0.9% 1,000 ML IV SCH (13:30)
[2017-12-20 14:07] VITALS: RESP 16; TEMP 98.5
[2017-12-20 16:40] VITALS: BP 156/75; PULSE 71
[2017-12-20 17:12] LABS: Glucose,Whole Blood 165 mg/dL (75-99)
--- NOTE | 2017-12-20 19:51 | P.PN ---
Subjective Progress Note Date: 12/20/17 This patient is a 62-year-old male being evaluated for possible acute stroke findings. Patient was able to complete MRI of the brain today which did reveal evidence of a subacute stroke involving the right putamen. This area of infarction is occasionally associated with uncontrolled hypertension. Patient seems to be doing fairly well despite this acute finding on his MRI of the brain. We have recommended the patient to monitor his blood pressure very closely even upon discharge home. He is currently not taking any antihypertensive medications. He was recently found to have elevated blood sugars and is been diagnosed with new onset diabetes mellitus. He has been placed on Glucophage for further treatment. He should follow-up with his primary care physician Dr. Carpio upon discharge from the hospital. We reviewed the results of his MRI of the brain today which does reveal evidence of a right ischemic infarction involving the putamen. As noted this is not uncommonly seen with uncontrolled hypertension. The patient did undergo a CARROLL procedure today by cardiology. This CARROLL came back negative with no evidence of PFO or left atrial appendage clot. We have recommended patient to be placed on aspirin daily for secondary stroke prevention. He is to have a 30 day event monitor placed by cardiology and should follow-up with them soon after discharge. The patient otherwise seems to be doing good in terms of recovery from his recent stroke. He may follow-up in the outpatient neurology clinic in 3-4 weeks and should keep a blood pressure log. Patient is been cleared for discharge home today. We've recommended that the discharge nurse discussed with Dr. Cortés whether he may require antihypertensive medication prior to discharge. Objective - Vital Signs Vital signs: Vital Signs Temp 98.5 F 12/20/17 13:18 Pulse 71 12/20/17 16:10 Resp 16 12/20/17 16:10 BP 156/75 12/20/17 16:10 Pulse Ox 99 12/20/17 16:10 Intake & Output 12/20/17 12/20/17 12/21/17 06:59 18:59 06:59 Intake Total 1880 100 Balance 1880 100 Weight 105 kg Intake: IV 400 100 Sodium Chloride 0.9% 1, 400 000 ml @ 60 mls/hr IV . [id number] [facility] Rx#:[id number] Intake, IV Titration 480 Amount Sodium Chloride 0.9% 1, 480 000 ml @ 60 mls/hr IV . [id number] [facility] Rx#:[id number] Oral 1000 Other: # Voids 1 - Exam Physical examination: PHYSICAL EXAMINATION: Patient is resting comfortably in bed. VITAL SIGNS: Blood pressure is [156/75]. Heart rate is [71]. Respiration is [16] . Temperature is [98.5]. HEENT: Head is atraumatic, neck is supple, there were no carotid bruits. CHEST: Lungs are clear to auscultation and percussion. CARDIAC: S1, S2 normal rate and rhythm. There is no murmur. ABDOMEN: Soft and nontender. Bowel sounds are present. EXTREMITIES: There is no pedal edema. Peripheral pulses are present. Neurological Examinatiion: Patient has a nonfocal neurological examination today. - Labs CBC & Chem 7: 12/18/17 02:28 12/18/17 02:28 Labs: Abnormal Lab Results - Last 24 Hours (Table) 12/19/17 12/20/17 12/20/17 Range/Units 20:04 07:03 11:08 POC Glucose (mg/dL) 141 H 152 H 141 H (75-99) mg/dL 12/20/17 Range/Units 17:09 POC Glucose (mg/dL) 165 H (75-99) mg/dL Assessment and Plan Assessment: And incoordination (1) Acute ischemic vertebrobasilar artery cerebellar stroke Current Visit: Yes Status: Acute Code(s): I63.29 - CEREBRAL INFRC DUE TO UNSP OCCLS OR STENOSIS OF PRECERB ART SNOMED Code(s): 946736915 (2) Chronic low back pain Current Visit: Yes Status: Acute Code(s): M54.5 - LOW BACK PAIN; G89.29 - OTHER CHRONIC PAIN SNOMED Code(s): 302032441 (3) Diabetes mellitus, new onset Current Visit: Yes Status: Acute Code(s): E11.9 - TYPE 2 DIABETES MELLITUS WITHOUT COMPLICATIONS SNOMED Code(s): 038670357 (4) Fall Current Visit: Yes Status: Acute Code(s): W19.XXXA - UNSPECIFIED FALL, INITIAL ENCOUNTER SNOMED Code(s): 5453777 Plan: This patient is a 62-year-old right-handed white male who was seen in neurology consultation initially for evaluation of left-sided arm weakness and difficulty with fine motor control of the left hand. Patient underwent full evaluation including MRI of the brain which did reveal evidence of an acute right putamen ischemic infarction. This was an isolated lesion. He subsequently underwent CARROLL procedure today which came back negative with no evidence of PFO or clot in the left atrial appendage. The patient's blood pressure is running slightly elevated. We have recommended that he keep a blood pressure log. This should be reviewed at his next follow-up visit in the neurology clinic in 3-4 weeks. Patient should be maintained on aspirin daily for secondary stroke prevention. He is newly diagnosed with diabetes mellitus and should follow-up with his primary care physician for tight control of his blood sugars. We reviewed all of his test results with the patient and his today at length. They have been updated on his MRI results yesterday. We will continue close neurological follow-up for the patient during this admission. He should schedule a follow- up appointment in the neurology clinic in 3-4 weeks. His overall prognosis at this time remains guarded.
--- NOTE | 2017-12-20 19:58 | P.PN ---
Subjective Progress Note Date: 12/19/17 This patient is a 62-year-old male being evaluated for possible acute stroke findings. Patient was able to complete MRI of the brain today which did reveal evidence of a subacute stroke involving the right putamen. This area of infarction is occasionally associated with uncontrolled hypertension. This patient's blood pressure readings reveal some elevated findings occasionally throughout the day. We have recommended that he should keep a blood pressure log for the next several months for close monitoring. He is scheduled to undergo CARROLL procedure tomorrow for further evaluation of this recent stroke. We have discussed all of these findings in detail today with the patient and his was at bedside. All of their questions were answered. The patient has been has been diagnosed with new onset diabetes mellitus. His hemoglobin A1c today was 11.0. He is been started on Glucophage. He should follow-up with Dr. Carpio or field technical specialist for further management of his new diabetes mellitus. His stroke risk factors include hypertension and diabetes mellitus. His cholesterol apparently is relatively in a normal range. We have recommended he have repeat laboratory testing done in 3 months. We will await further recommendations from cardiology pending his CARROLL procedure which is to be done tomorrow. Patient seems to be doing fairly well despite this acute finding on his MRI of the brain. We have recommended a complete stroke evaluation for the patient. We will continue close neurological follow-up with the patient during this admission. His overall prognosis remains guarded. Objective - Vital Signs Vital signs: Vital Signs Temp 97.5 F L 12/19/17 21:00 Pulse 62 12/19/17 21:00 Resp 16 12/19/17 21:00 BP 131/67 12/19/17 21:00 Pulse Ox 93 L 12/19/17 21:00 Intake & Output 12/19/17 12/19/17 12/20/17 06:59 18:59 06:59 Intake Total 480 120 Balance 480 120 Weight 105 kg Intake: IV 120 Sodium Chloride 0.9% 1, 120 000 ml @ 60 mls/hr IV . [id number] [facility] Rx#:[id number] Intake, IV Titration 480 Amount Sodium Chloride 0.9% 1, 480 000 ml @ 60 mls/hr IV . [id number] [facility] Rx#:[id number] Other: # Voids 2 - Exam Physical examination: PHYSICAL EXAMINATION: Patient is resting comfortably in bed. VITAL SIGNS: Blood pressure is [149/65]. Heart rate is [59]. Respiration is [16] . Temperature is [96.9]. HEENT: Head is atraumatic, neck is supple, there were no carotid bruits. CHEST: Lungs are clear to auscultation and percussion. CARDIAC: S1, S2 normal rate and rhythm. There is no murmur. ABDOMEN: Soft and nontender. Bowel sounds are present. EXTREMITIES: There is no pedal edema. Peripheral pulses are present. Neurological examination: Patient's neurological examination is unchanged from yesterday. - Labs CBC & Chem 7: 12/18/17 02:28 12/18/17 02:28 Labs: Abnormal Lab Results - Last 24 Hours (Table) 12/19/17 12/19/17 12/19/17 Range/Units 06:11 11:55 17:18 POC Glucose (mg/dL) 148 H 189 H 159 H (75-99) mg/dL 12/19/17 Range/Units 20:04 POC Glucose (mg/dL) 141 H (75-99) mg/dL Assessment and Plan (1) Acute ischemic vertebrobasilar artery cerebellar stroke Current Visit: Yes Status: Acute Code(s): I63.29 - CEREBRAL INFRC DUE TO UNSP OCCLS OR STENOSIS OF PRECERB ART SNOMED Code(s): 716053748 (2) Chronic low back pain Current Visit: Yes Status: Acute Code(s): M54.5 - LOW BACK PAIN; G89.29 - OTHER CHRONIC PAIN SNOMED Code(s): 660564445 (3) Diabetes mellitus, new onset Current Visit: Yes Status: Acute Code(s): E11.9 - TYPE 2 DIABETES MELLITUS WITHOUT COMPLICATIONS SNOMED Code(s): 029765276 (4) Fall Current Visit: Yes Status: Acute Code(s): W19.XXXA - UNSPECIFIED FALL, INITIAL ENCOUNTER SNOMED Code(s): 5422247 Plan: This patient is a 62-year-old male who was admitted to Hospital with symptoms of left-sided weakness. We have recommended a complete stroke evaluation for this patient which included an MRI of the brain. MRI of the brain was just completed today and reviewed and does reveal evidence of an acute right ischemic infarction in the right putamen. We have reviewed the MRI results today with the patient. He is being scheduled for CARROLL procedure tomorrow by cardiology. He is to be maintained on aspirin daily for secondary stroke prevention. Cardiology is also recommending the patient to have a 30 day event monitor at the time of discharge. Patient otherwise seems to be making good progress. He has noted slight improvement with this left upper arm strength and coordination. Most likely this will take several weeks for him to notice further improvement. We will continue to follow his progress closely during this admission. His overall prognosis at this time remains guarded.
--- NOTE | 2017-12-22 09:27 | ECHOF ---
Referral Reason:Thrombus MEASUREMENTS -------- HEIGHT: 177.8 cm WEIGHT: 107.0 kg BP: 132/86 RVIDd: 3.6 cm (< 3.3) IVSd: 1.2 cm (0.6 - 1.1) LVIDd: 5.4 cm (3.9 - 5.3) LVPWd: 1.2 cm (0.6 - 1.1) IVSs: 1.5 cm LVIDs: 3.7 cm LVPWs: 1.9 cm LA Diam: 4.1 cm (2.7 - 3.8) LAESV Index (A-L): 28.43 ml/m Ao Diam: 3.3 cm (2.0 - 3.7) AV Cusp: 2.1 cm (1.5 - 2.6) MV EXCURSION: 13.883 mm (> 18.000) MV EF SLOPE: 94 mm/s (70 - 150) EPSS: 0.3 cm MV E Silvestre: 0.80 m/s MV DecT: 218 ms MV A Silvestre: 0.68 m/s MV E/A Ratio: 1.18 RAP: 5.00 mmHg RVSP: 23.29 mmHg FINDINGS -------- Sinus rhythm. This was a technically good study. The left ventricular size is normal. There is borderline concentric left ventricular hypertrophy. Overall left ventricular systolic function is normal with, an EF between 60 - 65 %. The right ventricle is mildly enlarged. Normal LA size by volume 22+/-6 ml/m2. The right atrium is normal in size. The aortic valve is trileaflet and appears structurally normal. The mitral valve is normal. Mild tricuspid regurgitation present. Right ventricular systolic pressure is normal at < 35 mmHg. There is no pulmonic regurgitation present. The aortic root size is normal. Normal inferior vena cava with normal inspiratory collapse consistent with estimated right atrial pre ssure of 5 mmHg. The inferior vena cava is mildly dilated. There is no pericardial effusion. CONCLUSIONS -------- 1. Sinus rhythm. 2. This was a technically good study. 3. The left ventricular size is normal. 4. There is borderline concentric left ventricular hypertrophy. 5. Overall left ventricular systolic function is normal with, an EF between 60 - 65 %. 6. The right ventricle is mildly enlarged. 7. Normal LA size by volume 22+/-6 ml/m2. 8. The right atrium is normal in size. 9. The aortic valve is trileaflet and appears structurally normal. 10. The mitral valve is normal. 11. Mild tricuspid regurgitation present. 12. Right ventricular systolic pressure is normal at < 35 mmHg. 13. There is no pulmonic regurgitation present. 14. The aortic root size is normal. 15. Normal inferior vena cava with normal inspiratory collapse consistent with estimated right atrial pressure of 5 mmHg. 16. The inferior vena cava is mildly dilated. 17. There is no pericardial effusion. LOCK TENDER CHIEF OPERATOR: Irasema Brown RDCS
== END 2017-12-20 20:30 | disposition home or self-care (01) | DRG 65 ==
LOC: EC 14:21 → 6SEL 17:20 → 5MS5E 12-19 11:35 → OBSVTOIN 12-19 15:29
PROVIDERS: ADMIT Hospitalist; ATTEND Hospitalist
PROC: B24BZZ4 Ultrasonography of Heart with Aorta, Transesophageal (ICD-10-PCS; principal; 2017-12-20 10:00)
DX: I63.9 Cerebral infarction, unspecified (principal); G81.94 Hemiplegia, unspecified affecting left nondominant side; E11.65 Type 2 diabetes mellitus with hyperglycemia; R47.1 Dysarthria and anarthria; R47.81 Slurred speech; R40.2142 Coma scale, eyes open, spontaneous, at arrival to emergency department; R40.2362 Coma scale, best motor response, obeys commands, at arrival to emergency department; R40.2252 Coma scale, best verbal response, oriented, at arrival to emergency department; R29.701 NIHSS score 1; G89.29 Other chronic pain; M47.816 Spondylosis without myelopathy or radiculopathy, lumbar region; I10 Essential (primary) hypertension; Z90.49 Acquired absence of other specified parts of digestive tract; Z86.59 Personal history of other mental and behavioral disorders; W10.9XXA Fall (on) (from) unspecified stairs and steps, initial encounter; Z83.3 Family history of diabetes mellitus; Z83.6 Family history of other diseases of the respiratory system
CPT/HCPCS: 36415; 70450; 70551; 71046; 72100; 80048; 80053; 80061; 80306; 81003; 82550; 82553; 83036; 84484; 85025; 85610; 85730; 93005; 93270; 93271; 93306; 93312; 93320; 93325; 93880; 95819; 96360; 96361; 99285